=== PATIENT | female | born 1965 | race Caucasian/White ===

== ENCOUNTER → 2020-05-31 13:57 | Outpatient (CLI) | payer BC ==
[2019-10-16 07:14] VITALS: BMI 21.9
[~2020-05-31 13:57] MED LIST: HYDROCODON-ACE1 EA10 PO
== END | disposition home or self-care (01) ==
LOC: D.MRI 13:57
PROVIDERS: ATTEND Orthopaedic Surgery
DX: S83.231A Complex tear of medial meniscus, current injury, right knee, initial encounter (principal)